=== PATIENT | female | born 1935 | race Caucasian/White ===

== ENCOUNTER 2016-11-18 16:36 | Outpatient (CLI) | payer OTHER, MEDICAID ==
[~2016-11-18 16:36] MED LIST: ASPI-524 PO; BENA1TAB17 PO; CARB200C2 PO; FURO-150 PO; OXYB5TAB11 PO; OXYC15TA75 PO
== END 2016-11-18 18:06 | disposition home or self-care (01) ==
LOC: SRD 16:36
PROVIDERS: ATTEND Family Medicine
DX: Z01.818 Encounter for other preprocedural examination (principal); I70.0 Atherosclerosis of aorta
CPT/HCPCS: 71020-TC

== ENCOUNTER 2018-07-23 15:03 | Outpatient (CLI) | payer OTHER, MEDICAID ==
[~2018-07-23 15:03] MED LIST changes: -ASPI-524 PO; +ATOR40TA68 PO; -BENA1TAB17 PO; +CARB200T2 PO; +CILO100T PO; +DIPH-179 PO; -FURO-150 PO; +GABA-531 PO; +LEVO25TA7 PO; +MAGN400T10 PO; +MELO15TA13 PO; +METH10TA4 PO; -OXYB5TAB11 PO; -OXYC15TA75 PO; +PRO40 PO; +PROP10TA10 PO; +SACC250C3 PO; +VALA500T PO
== END 2018-07-23 20:51 | disposition home or self-care (01) ==
LOC: SRD 15:03
PROVIDERS: ATTEND Family Medicine
DX: Z01.818 Encounter for other preprocedural examination (principal); I70.0 Atherosclerosis of aorta
CPT/HCPCS: 71046-TC

== ENCOUNTER 2020-05-02 09:40 | Outpatient (CLI) | payer MEDICAID, OTHER ==
[~2020-05-02 09:40] MED LIST changes: -DIPH-179 PO; +LOM2.5 PO
== END 2020-05-02 20:46 | disposition home or self-care (01) ==
LOC: SMI 09:40
DX: G31.9 Degenerative disease of nervous system, unspecified (principal); I95.9 Hypotension, unspecified
CPT/HCPCS: 70551